=== PATIENT | female | born 1960 | race Two or more races ===

== ENCOUNTER 2023-06-05 11:10 | Outpatient (OUT) | payer MEDICAID, SELFPAY ==
--- NOTE | 2023-06-05 11:43 | MM_ITS ---
Patient: KIRSTY BOUDREAUX Exam Date: 06/05/2023 : 1960 Gender:F Ordering : Non-Staff Physician Admission #: [id number] Family : Order #: [id number] CLICK HERE TO VIEW EXAM RADIOLOGY REPORT PROCEDURE: MM TOMOSYNTHESIS SCREENING BI COMPARISON: None. INDICATIONS: Z12.31 Calculator Name NCI Breast Cancer Risk Assessment Tool 5 Year Breast Cancer Risk 1.10% Lifetime Breast Cancer Risk 4.20% Personal Breast Cancer No Personal Ovarian Cancer No Treatments None Family Cancers Cousin-maternal with breast cancer at age ~50; Cousin-maternal with throat cancer at age ~0. LOCATION: [facility] BREAST COMPOSITION: Scattered areas fibroglandular density. FINDINGS: DIAGNOSTIC CATEGORY 0--INCOMPLETE: NEED ADDITIONAL IMAGING EVALUATION. Scattered benign-appearing calcifications are present. Scattered benign-appearing lymph nodes are present. RIGHT BREAST: Ill-defined 8.5 mm nodule upper outer quadrant, mid breast. Spot imaging and ultrasound follow-up recommended. LEFT BREAST: Well-circumscribed 7.7 mm nodule lower inner quadrant, anterior breast. Spot imaging and ultrasound follow-up recommended. RECOMMENDATIONS: ADDITIONAL MAMMOGRAPHIC VIEWS REQUIRED: BILATERAL BREASTS - spot compression ULTRASOUND: BILATERAL BREASTS PLEASE NOTE: A NORMAL MAMMOGRAM DOES NOT EXCLUDE THE POSSIBILITY OF BREAST CANCER. A CLINICALLY SUSPICIOUS PALPABLE LUMP SHOULD BE BIOPSIED. Dictated by: Virgil Landa MD on 06/05/2023 at 13:58 Approved by: Virgil Landa MD on 06/05/2023 at 14:00
== END 2023-06-05 11:11 | disposition home or self-care (01) ==
DX: Z12.31 Encounter for screening mammogram for malignant neoplasm of breast (principal); Z80.3 Family history of malignant neoplasm of breast; Z80.8 Family history of malignant neoplasm of other organs or systems; N63.11 Unspecified lump in the right breast, upper outer quadrant; N63.24 Unspecified lump in the left breast, lower inner quadrant
CPT/HCPCS: 77063; 77067